=== PATIENT | female | born 1945 | race Caucasian/White ===

== ENCOUNTER 2023-07-16 19:21 | Emergency (ER) | payer MEDICARE, OTHER, SELFPAY ==
[2023-07-16 19:23] VITALS: BP 146/79
[2023-07-16] MEDS: NSS 1000 IV (20:39)
[2023-07-16 20:40] LABS: % Basophils 0.3 % (0-2); % Eosinophils 5.5 % (0-6); % Immature Granulocytes 0.3 % (0-0.5); % Lymphocytes 30.6 % (20.5-51.1); % Monocytes 6.8 % (1.7-9.3); % Neutrophils 56.5 % (42.2-75.2); Absolute Eosinophils 0.5 10^3/uL (0-0.7); Absolute Lymphocytes 2.7 10^3/uL (1.2-3.4); Absolute Monocytes 0.6 10^3/uL (0.1-0.6); Hematocrit 41.1 % (37.0-47.0); Hemoglobin 13.9 g/dL (12.0-16.0); Mean Corp Hgb Conc. 33.8 g/dL (33.0-37.0); Mean Corpuscular Hgb 29.1 pg (27.0-31.0); Mean Platelet Volume 9.1 fL (7.4-10.4); Nucleated Red Blood Cells % 0 %; Platelet Count 241 10^3/uL (130-400); Red Blood Cell Count 4.78 10^6/uL (4.20-5.40); Red Cell Dist. Width 13.1 % (11.5-14.5); White Blood Cell Count 8.9 10^3/uL (4.8-10.8)
[2023-07-16] MEDS: ZOFRAN 4 MG IV (20:40)
[2023-07-16 20:56] LABS: ALT (SGPT) 19 U/L (0-35); AST (SGOT) 27 U/L (14-36); Albumin 4.3 g/dl (3.5-5.0); Alkaline Phosphatase 97 U/L (38-126); Blood Urea Nitrogen 15 mg/dl (7-17); Calcium 9.5 mg/dl (8.4-10.2); Carbon Dioxide 28 mmol/L (22-30); Chloride 103 mmol/L (98-107); Glucose 102 mg/dl (70-99); Lipase 41 U/L (23-300); Potassium 4.3 mmol/L (3.5-5.1); Sodium 135 mmol/L (135-145); Total Bilirubin 0.6 mg/dl (0.2-1.3); Total Protein 7.3 g/dl (6.3-8.2); eGFR > 60.00
[2023-07-16 22:08] VITALS: BP 155/73
[2023-07-16 22:15] LABS: Urine Albumin Negative (Neg - Trace); Urine Bilirubin Negative (Negative); Urine Character Clear (Clear); Urine Color Straw; Urine Glucose Negative (Negative); Urine Ketone Negative (Negative); Urine Leukocyte Trace (Negative); Urine Nitrite Negative (Negative); Urine Occult Blood Negative (Negative); Urine Specific Gravity 1.005 (<1.030); Urine Urobilinogen Negative (Neg - 1+)
[2023-07-16 22:22] LABS: Urine Bacteria Few (Negative); Urine Squamous Cell 0-2 /LPF (Few)
[2023-07-16 22:23] LABS: Urine Red Blood Cell 0-2 /HPF (0-2); Urine White Cell 0-2 /HPF (0-5)
[2023-07-16 22:54] VITALS: BP 151/86
[2023-07-17 00:35] VITALS: BP 161/83
--- NOTE | 2023-07-17 02:44 | ED.GENMED ---
History of Present Illness
General
Chief Complaint: Abdominal Pain
Source: patient
Exam Limitations: none
Time Seen by Provider: 07/16/23 20:16
Nursing documentation reviewed up to this point in time: agreed with
Travel History
Have you had any contact with someone who has COVID-19?: No
Do you have any symptoms of coronavirus? Fever > 100 degrees, chills, cough, shortness of breath, sore throat, loss of taste or smell, muscle aches, or headache?: No
History of Present Illness
History of Present Illness:
Patient to ED with complaint of inabilty to pass stool. Has had a bowel obstruction in the past and she feels this is again the problem. States she had constipation starting 2 weeks ago, then diarrhea. Over the last couple days she reports 'dribs
and drabs' No n/v. Generalized abd. pain. Brought to ED bymali vallejo for eval.
Past History
Past History
ED Past Medical History: Arrthythmia (Atrial fib), Cancer (Basal cell carcinoma, right cheek), GERD, HTN, Hypercholesterolemia, NIDDM (Impaired fasting glucose), Hypothyroidism and Other (Ulcers, COVID-19, Vertigo, Bowel obstruction, GI bleeding,
Hiatal hernia, Peptic ulcers)
ED Past Surgical History: Appendectomy, Cardiac (Ablation X 2), Gynecological (TVH, BTL), Orthopedic (Bilateral total hip replacements, right knee repair x3), Tonsilectomy and Other (Cataract extractions bilaterally 2020, deviated septum surgery,
Mohs surgery)
Patient has exhibited threatening behavior?: No
Social History
Tobacco: Former smoker
Alcohol: None
Drug: None
Personal:
Living: with family
Employment: Other
Family History
Family History: Hypertension
Review of Systems
Review of Systems
Allergies reviewed?: Yes
All Other Systems: ROS reviewed and negative except as documented in HPI and ROS
Constitutional: Reports no symptoms
EENT: Reports no symptoms
Respiratory: Reports no symptoms
Cardiac: Reports no symptoms
ABD/GI: Reports constipated
: Reports no symptoms
Musculoskeletal: Reports no symptoms
Skin: Reports no symptoms
Psychiatric: Reports no symptoms
Phy Exam
General Physical Exam
General Presentation: well appearing and no apparent distress
General age: appears stated age
General Skin: warm and dry
General Habitus: normal
General Mental: alert
Cardiovascular Exam
Cardiovascular Exam: regular rate/rhythm and no edema
Pulmonary Exam
Pulmonary Exam: lungs clear and no respiratory distress
Gastrointestinal Exam
Gastrointestinal Exam: normal bowel sounds, soft, no organomegaly, non distended and no cva tenderness
Palpation: generalized: Mild tenderness
Musculoskeletal Exam
Musculoskeletal Exam: full ROM and neuro vasc intact
Skin Exam
Skin Exam: normal color, warm/dry and no rash
Psychiatric Exam
Psychiatric Exam: normal mood/affect
Course
Orders/Labs/Results
Orders:
Orders
07/16/23 20:23
CT Abd/pelvis W Iv Cont Urgent
Reason For Exam: abd. pain hx obstruction
Ondansetron Injectable [Zofran] 4 mg IV NOW STA
07/16/23 20:24
0.9% Sodium Chloride 1000 ml [Nss] 1,000 ml IV BOLUS
07/16/23 20:35
Complete Blood Count/With Diff Urgent
Comprehensive Metabolic Panel Urgent
Lipase Urgent
07/16/23 22:04
Urinalysis Reflex To Culture Urgent
Date Specimen was Collected: 07/16/23
Time Specimen was Collected: 22:00
Urine Microscopic Reflex Cult Urgent
Abnormal Lab Results
07/16/23 07/16/23
20:35 22:04
Glucose 102 H mg/dl
(70-99)
Leukocyte Esterase Rfl Trace A
(Negative)
Urine Bacteria (Reflex) Few A
(Negative)
07/16/23 20:35
07/16/23 20:35
Vital Signs
Initial and Last Documented VS:
Initial Vital Signs
Temp Pulse Resp BP Pulse Ox
97.9 F 66 16 146/79 97
07/16/23 19:23 07/16/23 19:23 07/16/23 19:23 07/16/23 19:23 07/16/23 19:23
Last Documented Vital Signs
Temp Pulse Resp BP Pulse Ox
97.9 F 72 18 161/83 97
07/16/23 19:23 07/17/23 00:35 07/17/23 00:35 07/17/23 00:35 07/17/23 00:35
*Radiology
Radiology exam reviewed: radiology read reviewed
*Pulse Oximetry
Patient hypoxic: no
*Critical Care Note
Total Time (30-74mins, 75-104mins- exclusive of procedures): Not Applicable
Update Note
Update Note:
Labs CT report reviewed with patient and spouse. No evidence of obstrution. She is discharged home, will follow up with PCP. Given instructions on s/s to return to ED and she is agreeable to plan.
ED Attending Note
-
Portions of this chart may have been created with voice recognition software.� Occasional wrong word or��sound alike� substitutions may have occurred due to the inherent limitations of voice recognition software.
Discharge Plan
Departure
Patient Disposition: Home (Routine Discharge)
Date of Disposition: 07/17/23
Time of Disposition: 00:28
Patient with high blood pressure during this ER visit?: No
Condition: Good
Covid-19: Not Applicable
Discharge Problem:
Abdominal pain
Instructions: Abdominal Pain
Prescriptions:
No Action
carvedilol [Coreg] 25 MG tablet
25 mg PO BID
levothyroxine [Synthroid] 200 MCG tablet
200 mcg PO MOTUTHFRSA
multivitamin 1 EACH tablet
1 ea PO DAILY
pantoprazole 40 MG tablet,delayed release (DR/EC)
40 mg PO DAILY
red yeast rice 600 MG tablet
1,200 mg PO BID
diltiazem HCl 120 mg capsule,extended release 24hr
120 mg PO DAILY
polyethylene glycol 3350 17 gram Powder In Packet
17 g PO DAILY Qty: 0 0RF
Referrals:
Matthew Leiva MD [Active] - Call in 1-3 days for appt
Jeferson Bloom MD [Family Provider] -
Activity Restrictions/Additional Instructions:
Return to the emergency department immediately for any changes in/worsening of your symptoms.
Interventions
Interventions:
*Risk Screen - Suicide Last Done: 07/16/23 19:23
*General Assessment Last Done: 07/16/23 19:23
*Neglect/Abuse Screening Last Done: 07/16/23 19:23
ED- Fall Risk Assessment Last Done: 07/16/23 22:08
*ED COVID-19 Vaccine History Last Done: 07/17/23 00:39
*Nursing Disposition Last Done: 07/17/23 00:39
CW-Hbiadh-Loqfgmozui Assessment Last Done: 07/16/23 22:07
Discharge Date and Time
Discharge Date/Time: 07/17/23 00:40
== END 2023-07-17 00:40 | disposition home or self-care (01) ==
LOC: EMR 19:21
PROVIDERS: Nurse Practitioner; EMERGENCY PHYSICIAN Emergency Medicine; FAMILY PHYSICIAN Family Medicine
DX: R10.84 Generalized abdominal pain (principal); K59.00 Constipation, unspecified; I48.91 Unspecified atrial fibrillation; K21.9 Gastro-esophageal reflux disease without esophagitis; I10 Essential (primary) hypertension; E78.00 Pure hypercholesterolemia, unspecified; I48.92 Unspecified atrial flutter; E11.36 Type 2 diabetes mellitus with diabetic cataract; E03.9 Hypothyroidism, unspecified; M19.90 Unspecified osteoarthritis, unspecified site; K44.9 Diaphragmatic hernia without obstruction or gangrene; Z96.643 Presence of artificial hip joint, bilateral; Z86.16 Personal history of COVID-19; Z85.828 Personal history of other malignant neoplasm of skin; Z87.11 Personal history of peptic ulcer disease; Z87.891 Personal history of nicotine dependence; Z88.1 Allergy status to other antibiotic agents; Z91.048 Other nonmedicinal substance allergy status
CPT/HCPCS: 99285; 96361 ×2; 96374; 74177; 80053; 81003; 81015; 83690; 85025; Q9967

== ENCOUNTER → 2023-10-13 16:28 | Outpatient (REF) | payer MEDICARE, OTHER, SELFPAY | LOC: PAVMRI 16:28 | PROVIDERS: ATTENDING PHYSICIAN Family Medicine | DX: R27.0 Ataxia, unspecified (principal); H53.9 Unspecified visual disturbance; R26.89 Other abnormalities of gait and mobility | CPT/HCPCS: 70551 ==

== ENCOUNTER → 2024-09-26 09:11 | Outpatient (REF) | payer MEDICARE, OTHER, SELFPAY | LOC: WDC 09:11 | PROVIDERS: ATTENDING PHYSICIAN Nurse Practitioner; FAMILY PHYSICIAN Family Medicine | DX: N64.52 Nipple discharge (principal) | CPT/HCPCS: 76642; 77062; 77066 ==

== ENCOUNTER 2025-01-16 09:49 | Emergency (ER) | payer MEDICARE, OTHER, SELFPAY ==
[2025-01-16 09:52] VITALS: BP 164/96
[2025-01-16 09:54] VITALS: BP 164/96
[2025-01-16 10:00] VITALS: BP 149/98
--- NOTE | 2025-01-16 10:01 | ED.GENMED ---
History of Present Illness
General
Chief Complaint: Abdominal Symptoms
Source: patient and records
Time Seen by Provider: 01/16/25 09:50
History of Present Illness
History of Present Illness:
79-year-old female with past medical history of atrial fibrillation, hypertension, hyperlipidemia, GERD, previous peptic ulcer disease, previous bowel obstruction presenting to the emergency department for evaluation of abdominal pain that has been
waxing and waning over the course of the last few years, accompanied with intermittent bouts of diarrhea stating these attacks would occur every so often but over the last month or so seem to be happening every day. The symptoms are associated with
loose stool/diarrhea with patient's last episode around 5 AM this morning. She has been followed by GI and her primary care provider for this with no one being able to explain the etiology for her symptoms. The symptoms today were not any than her
usual, patient expresses significant frustration with the inability for anybody to find an exact diagnosis for her symptoms. She does report being on a daily dose of doxycycline for rosacea and states that 2 to 3 weeks ago she finished a course of
prednisone for a skin rash as well but no one is also able to tell her the etiology for her skin rash. She denies any fevers, chills, rigors, recent sick contacts or recent travel or any other concerns. Patient is stating she hopes for patient
imaging studies today in hopes to find an answer to her symptoms.
Past History
Past History
ED Past Medical History: Arrthythmia (Atrial fib), Cancer (Basal cell carcinoma, right cheek), GERD, HTN, Hypercholesterolemia, NIDDM (Impaired fasting glucose), Hypothyroidism and Other (Ulcers, COVID-19, Vertigo, Bowel obstruction, GI bleeding,
Hiatal hernia, Peptic ulcers)
ED Past Surgical History: Appendectomy, Cardiac (Ablation X 2), Gynecological (TVH, BTL), Orthopedic (Bilateral total hip replacements, right knee repair x3), Tonsilectomy and Other (Cataract extractions bilaterally 2020, deviated septum surgery,
Mohs surgery)
Patient has exhibited threatening behavior?: No
Social History
Tobacco: Former smoker
Alcohol: None
Drug: None
Personal:
Living: with family
Employment: Other
Family History
Family History: Hypertension
Review of Systems
Review of Systems
All Other Systems: ROS reviewed and negative except as documented in HPI and ROS
Phy Exam
Physical Exam
Physical Exam:
GENERAL: Alert , in no apparent distress
EYE: clear conjunctiva b/l
HEAD: NCAT
ENT: o/p clr, mmm.
CARDIAC: Regular rate and rhythm .
LUNGS: Clear breath sounds bilaterally, no acute respiratory distress, no wheezes/rales/rhonchi
ABDOMEN: Soft, without focal tenderness, no r/g, no cvat
NEUROLOGICAL: Alert and oriented
SKIN: Warm and dry, skin intact.
MUSCULOSKELETAL: No edema, well perfused.
PSYCH: Normal and appropriate interaction.
Scores
Heart Failure Risk
Heart Failure Risk Score: Not Applicable
Heart Score for Chest Pain Patients
STEMI patient?: Not applicable
Withdrawal Assessment of Alcohol
Withdrawal Assessment Completed?: Not applicable
Course
Orders/Labs/Results
Orders:
Orders
01/16/25 10:00
STOOL [C difficile Antigen & Toxins] Urgent
EVA Source: Feces/Stool
Specimen Description:
Stool Culture Urgent
EVA Source: Feces/Stool
Specimen Description:
01/16/25 10:01
CT Abd/pelvis W Iv Cont Urgent
Comment:
Reason For Exam: generalized abd pain, diarrhea
01/16/25 10:02
Complete Blood Count/With Diff Urgent
Comprehensive Metabolic Panel Urgent
Lipase Urgent
01/16/25 11:19
Urinalysis Reflex To Culture Urgent
Date Specimen was Collected: 01/16/25
Time Specimen was Collected: 11:18
Urine Microscopic Reflex Cult Urgent
Urine Culture Urgent
EVA Source: U
Specimen Description:
Date Specimen was Collected: 01/16/25
Time Specimen was Collected: 11:18
Abnormal Lab Results
01/16/25 01/16/25
10:02 11:19
Absolute Monos (auto) 0.7 H 10^3/uL
(0.1-0.6)
Eosinophils % 6.4 H %
(0-6)
Chloride 108 H mmol/L
(98-107)
Glucose 135 H mg/dl
(70-99)
Ur Occult Blood Reflex 2+ A
(Negative)
Leukocyte Esterase Rfl 1+ A
(Negative)
Urine Bacteria (Reflex) Many A
(Negative)
01/16/25 10:02
01/16/25 10:02
Vital Signs
Initial and Last Documented VS:
Initial Vital Signs
Temp Pulse Resp BP Pulse Ox
98.2 F 84 20 164/96 96
01/16/25 09:52 01/16/25 09:52 01/16/25 09:52 01/16/25 09:52 01/16/25 09:52
Last Documented Vital Signs
Temp Pulse Resp BP Pulse Ox
98.2 F 87 21 164/96 96
01/16/25 09:52 01/16/25 09:54 01/16/25 09:54 01/16/25 09:54 01/16/25 10:06
MDM/Problems Addressed
Differential Diagnosis Includes:
GERD
Gastritis
IBS
Colitis
Diverticulitis
Recurring bowel obstruction
C. difficile colitis or infectious diarrhea
Pancreatitis
Urinary tract infection
MDM/Problems Addressed:
79-year-old female presenting to the emergency department for evaluation of recurring abdominal pain accompanied with diarrhea. Patient has undergone extensive workup for this including colonoscopy and endoscopy, imaging studies without any
specific etiologies found. She endorses significant frustration without a specific diagnosis. Patient arrives to the ER hemodynamically stable and in no acute distress. Abdomen is soft and without any focal tenderness. Based off the chronicity
of her symptoms I do have less suspicion for emergent pathologies but given her age and past medical history will still obtain labs and CT imaging. Disposition pending.
Chronic conditions affecting care: Previous abdomnial surgery (Previous bowel obstruction)
*Radiology
Radiology exam reviewed: radiology read reviewed
*Pulse Oximetry
SaO2: 96
Oxygen Mode of Delivery: Room air
Patient hypoxic: no
*Critical Care Note
Total Time (30-74mins, 75-104mins- exclusive of procedures): Not Applicable
Data Reviewed
Review of Other/Old Records Reveals: Records and Testing
Comment
Comment:
Last colonoscopy on record is from August 2022 shows a polyp within the cecum which was removed as well as diverticulum within the sigmoid and ascending colon
Patient Management
Escalation/DeEscalation of care consider admission/obs:
CT findings without any acute abnormalities. Stable findings noted including redemonstration of suspected pancreatic cyst lesions which could mean pseudocysts and/or sidebranch intraductal papillary mucinous neoplasms. There was recommended
outpatient MRI in 1 to 2 years. Patient states that she has been doing this as recommended already. Encouraged continued outpatient follow-up with GI and primary care provider. Aware of return precautions to the ER.
ED Attending Note
-
Portions of this chart may have been created with voice recognition software.� Occasional wrong word or��sound alike� substitutions may have occurred due to the inherent limitations of voice recognition software.
Discharge Plan
Departure
Patient Disposition: Home (Routine Discharge)
Date of Disposition: 01/16/25
Time of Disposition: 13:30
Patient with high blood pressure during this ER visit?: Yes
Discharge Problem:
Abdominal pain
Instructions: Abdominal Pain
Prescriptions:
No Action
carvedilol [Coreg] 25 MG tablet
25 mg PO BID
levothyroxine [Synthroid] 200 MCG tablet
200 mcg PO MOTUTHFRSA
multivitamin 1 EACH tablet
1 ea PO DAILY
pantoprazole 40 MG tablet,delayed release (DR/EC)
40 mg PO DAILY
red yeast rice 600 MG tablet
1,200 mg PO BID
diltiazem HCl 120 mg capsule,extended release 24hr
120 mg PO DAILY
polyethylene glycol 3350 17 gram Powder In Packet
17 g PO DAILY Qty: 0 0RF
Referrals:
Jeferson Bloom MD [Family Provider, [facility]]
Discharge Date and Time
Print Language: INDONESIAN
[2025-01-16 10:16] LABS: Hematocrit 40.9 % (37.0-47.0); Hemoglobin 13.7 g/dL (12.0-16.0); Mean Corp Hgb Conc. 33.5 g/dL (33.0-37.0); Mean Corpuscular Volume 89.1 fL (81.0-99.0); Nucleated Red Blood Cells % 0 %; Platelet Count 218 10^3/uL (130-400); Red Cell Dist. Width 13.4 % (11.5-14.5)
[2025-01-16 11:19] LABS: Lipase 27 U/L (23-300)
[2025-01-16 11:31] LABS: ALT (SGPT) 24 U/L (0-35); AST (SGOT) 25 U/L (14-36); Albumin 4.2 g/dl (3.5-5.0); Alkaline Phosphatase 81 U/L (38-126); Blood Urea Nitrogen 17 mg/dl (7-17); Calcium 9.5 mg/dl (8.4-10.2); Carbon Dioxide 22 mmol/L (22-30); Chloride 108 mmol/L (98-107); Glucose 135 mg/dl (70-99); Potassium 4.4 mmol/L (3.5-5.1); Sodium 138 mmol/L (135-145); Total Protein 6.7 g/dl (6.3-8.2); eGFR > 60.00
[2025-01-16 11:31] LABS: Urine Character Clear (Clear)
[2025-01-16 12:00] VITALS: BP 133/80
[2025-01-16 12:10] LABS: Urine Urothelial Cell 0-2 /LPF (FEW)
[2025-01-16 12:11] LABS: Urine Red Blood Cell 0-2 /HPF (0-2)
== END 2025-01-16 13:30 | disposition home or self-care (01) ==
LOC: EMR 09:49
PROVIDERS: Physician Assistant Medical; EMERGENCY PHYSICIAN Emergency Medicine; FAMILY PHYSICIAN Family Medicine
DX: R10.9 Unspecified abdominal pain (principal); E03.9 Hypothyroidism, unspecified; E11.9 Type 2 diabetes mellitus without complications; E78.00 Pure hypercholesterolemia, unspecified; I10 Essential (primary) hypertension; I48.91 Unspecified atrial fibrillation; Z87.11 Personal history of peptic ulcer disease; Z87.891 Personal history of nicotine dependence
CPT/HCPCS: 99284; 74177; 80053; 81003; 81015; 83690; 85025; 87077; 87086; Q9967